=== PATIENT | female | born 1980 | race Asian ===

== ENCOUNTER 2017-04-09 08:34 | Emergency (ER) | payer BC ==
[~2017-04-09] VITALS: Ht 152.4 cm; Wt 45.4 kg
[2017-04-09 09:11] VITALS: BP 89/59
--- NOTE | 2017-04-09 09:19 | Emergency Room Report ---
History of Present Illness General Chief Complaint: Shoulder Injury Source: Patient Present Illness HPI Patient has a history of shoulder dislocations. The patient states that usually she is able to reduce the shoulder on her own at home. However, today she was unable to. The patient states that she was taken a shower and dislocated her right shoulder. She denies trauma or injury. She states that it occurred around 7:30 this morning. She has no other complaints. Allergies: Coded Allergies: No Known Allergies (Unverified , 04/09/17) Patient History Past Medical History: see triage record, other - Hx breast ca and shoulder dislocations. Social History: Denies: alcohol use, drug use, smoking Last Menstrual Period: 2 yrs ago Now: No Reviewed Nursing Documentation: PMH: Agreed, PSxH: Agreed Nursing Documentation-PMH Past Medical History: No History, Except For Hx Cancer: Yes - breast Review of Systems All Other Systems: negative except mentioned in HPI Physical Exam Vital Signs Date Time Temp Pulse Resp B/P Pulse Ox O2 Delivery O2 Flow Rate FiO2 04/09/17 08:43 59 14 87/58 99 Room Air Sp02 EP Interpretation: reviewed, normal General Appearance: no apparent distress, alert, GCS 15, non-toxic Head: normocephalic, atraumatic Eyes: bilateral eye PERRL, bilateral eye normal inspection ENT: hearing grossly normal, normal pharynx, no angioedema, normal voice Neck: full range of motion, supple/symm/no masses Respiratory: chest non-tender, no respiratory distress, no retraction, no accessory muscle use, speaking full sentences Cardiovascular #1: no edema Rectal: deferred Musculoskeletal: back normal, other - R. shoulder with anterior depression c/w dislocation. Neurologic: alert, oriented x3, responsive, motor strength/tone normal, sensory intact, speech normal Psychiatric: judgement/insight normal, memory normal, mood/affect normal, no suicidal/homicidal ideation Skin: normal color, no rash, warm/dry, well hydrated Procedures Joint Reduction Joint Reduction : Consent: Verbal Joint Reduction Site: shoulder (R) Procedural Sedation: No Reduction Attempts: One Pre-Procedure NV Exam: Yes Post-Procedure NV Exam: Yes Post Joint Reduction Film: joint reduced Patient Tolerated: Well Complications: None Progress Traction and slow elevation was used to gently reduce the right shoulder without competition or incident. The patient was placed in a sling. Medical Decision Making Diagnostic Impression: Primary Impression: Shoulder dislocation ER Course This patient presented with a right shoulder dislocation. Shoulder was reduced without complication or incident. See my procedure note. Postreduction x-ray shows no fracture and successful reduction. The patient was instructed that she should see an orthopedist for further evaluation. She was educated on the importance orthopedic evaluation for long-term health of her shoulder joint. She indicated understanding. Patient was placed in a sling and given return precautions and followup instructions. Other X-Ray Diagnostic Results Other X-Ray Diagnostic Results : X-Ray Ordered: R. shoulder xray EP Interpretation: Yes Findings: no fractures, no dislocation, no soft tissue swelling Number of Views: 3 Other Impression Impression: Normal post reduction right shoulder x-ray Last Vital Signs Date Time Temp Pulse Resp B/P Pulse Ox O2 Delivery O2 Flow Rate FiO2 04/09/17 08:43 59 14 87/58 99 Room Air Status: improved Disposition: HOME, SELF-CARE Condition: Improved Patient Instructions: Shoulder Dislocation SWETA OSEGUERA D.O. Apr 09, 2017 09:19
[2017-04-09 09:45] VITALS: BP 85/45
--- NOTE | 2017-04-09 10:11 | Diagnostic Imaging Report ---
Indication: PAIN Technique: 3 views of the right shoulder Comparison: none Findings: No acute fractures. No dislocations. Joint spaces are preserved. Impression:Negative
== END 2017-04-09 09:45 | disposition home or self-care (01) ==
LOC: EMR 09:42
DX: S43.004A Unspecified dislocation of right shoulder joint, initial encounter (principal); X58.XXXA Exposure to other specified factors, initial encounter; Y93.9 Activity, unspecified; Y99.9 Unspecified external cause status; Z85.3 Personal history of malignant neoplasm of breast
CPT/HCPCS: 29240; 99284